=== PATIENT | male | born 1955 | race Caucasian/White ===

== ENCOUNTER → 2017-04-10 11:31 | Outpatient (CLI) | payer OTHER ==
[2016-08-02 09:47] VITALS: BMI 27.6
[~2017-04-10 11:31] MED LIST: COUMADIN2 MG PO; COUMADIN4 MG PO; FLAGYL500 MG PO; K-DUR20 MEQ PO; LEVAQUIN500 MG PO; LEVOTHYROXINE175 MCG PO; LIPITOR20 MG PO; LOPID600 MG PO; PACERONE200 MG PO; TENORMIN25 MG PO
[2017-04-10 12:07] LABS: INR 2.13 (0.85-1.17); PROTIME 23.9 SECONDS (11.6-15.0)
== END | disposition home or self-care (01) ==
LOC: D.LAB 10:15
PROVIDERS: Family Medicine
DX: I35.8 Other nonrheumatic aortic valve disorders (principal)

== ENCOUNTER 2019-06-05 10:12 | Emergency (ER) | payer MEDICARE, BC ==
[~2019-06-05] VITALS: Ht 180.3 cm; Wt 90.9 kg
[2019-06-05 10:14] VITALS: Ht 180.3 cm; Wt 90.9 kg
[2019-06-05] MEDS ORDERED: TRICOR145 MG PO (10:16)
[2019-06-05 10:40] LABS: BASOPHILS 0.3 % (0-2); EOSINOPHILS 4.5 % (0-7); HEMATOCRIT 44.5 % (42.0-54.0); HEMOGLOBIN 15.7 g/dL (13.5-17.5); IMMATURE GRANULOCYTES 0.4 % (0-5); LYMPHOCYTES 30.1 % (15-50); MCH 30.1 pg (26.0-34.0); MCHC 35.3 g/dL (31.0-37.0); MCV 85.4 fL (80.0-100.0); MEAN PLATELET VOLUME 10.3 fL (7.4-10.4); MONOCYTES 10.8 % (2-11); NEUTROPHILS 53.9 % (40-80); RBC 5.21 10x6/uL (4.20-6.10); RDW 14.5 % (11.5-14.5)
[2019-06-05 10:42] LABS: PLATELET COUNT 253 10x3/uL (130-400)
[2019-06-05 11:41] LABS: ALBUMIN 3.7 g/dL (3.4-5.0); BILIRUBIN - TOTAL 0.59 mg/dL (0.2-1.3); CALCIUM 9.1 mg/dL (8.5-10.1); CARBON DIOXIDE 26.9 mmol/L (21.0-32.0); CREATININE - SERUM 1.5 mg/dL (0.6-1.3); POTASSIUM - SERUM 3.9 mmol/L (3.5-5.1); PROTEIN - SERUM 7.2 g/dL (6.4-8.2)
[2019-06-05] MEDS ORDERED: MECLIZINE HCL12.5 MG PO (14:17)
[2019-06-05] MEDS ORDERED: AUGMENTIN 875-11 TAB PO (14:17)
[2019-06-05 15:23] VITALS: BP 129/72
== END 2019-06-05 15:07 | disposition home or self-care (01) ==
LOC: D.ER 10:12
PROVIDERS: Family Medicine
DX: J32.9 Chronic sinusitis, unspecified (principal); R42 Dizziness and giddiness; I10 Essential (primary) hypertension

== ENCOUNTER 2019-11-14 13:34 | Emergency (ER) | payer MEDICARE, BC ==
[~2019-11-14] VITALS: Ht 180.3 cm; Wt 89.4 kg
[~2019-11-14 13:34] MED LIST changes: +AUGMENTIN 875-11 TAB PO; +MECLIZINE HCL12.5 MG PO; +TRICOR145 MG PO
[2019-11-14 13:51] VITALS: Ht 180.3 cm; Wt 89.4 kg
[2019-11-14 14:39] LABS: BASOPHILS 0 % (0-2); EOSINOPHILS 0 % (0-7); HEMATOCRIT 45.5 % (42.0-54.0); HEMOGLOBIN 15.5 g/dL (13.5-17.5); IMMATURE GRANULOCYTES 0.3 % (0-5); LYMPHOCYTES 2.6 % (15-50); MCHC 34.1 g/dL (31.0-37.0); MEAN PLATELET VOLUME 9.2 fL (7.4-10.4); MONOCYTES 2.4 % (2-11); NEUTROPHILS 94.7 % (40-80); PLATELET COUNT 277 10x3/uL (130-400); RBC 5.17 10x6/uL (4.20-6.10); RDW 15.1 % (11.5-14.5); WBC 17.8 10x3/uL (4.8-10.8)
[2019-11-14 14:57] LABS: CALC OSMOLALITY 289 mosm/kg (275-300); CALCIUM 9.6 mg/dL (8.5-10.1); CARBON DIOXIDE 23.2 mmol/L (21.0-32.0); CHLORIDE - SERUM 106 mmol/L (98-107); CREATININE - SERUM 1.3 mg/dL (0.6-1.3); GLUCOSE 149 mg/dL (74-106); POTASSIUM - SERUM 3.7 mmol/L (3.5-5.1); SODIUM 141 mmol/L (136-145); UREA NITROGEN 29 mg/dL (7-18); eGFR NON AFRICAN AMERICAN 59 mL/min (90-120)
[2019-11-14 15:09] LABS: ALBUMIN 3.8 g/dL (3.4-5.0); ALKALINE PHOSPHATASE 54 U/L (46-116); ALT (SGPT) 100 U/L (10-68); AMYLASE - SERUM 50 U/L (25-115); BILIRUBIN - TOTAL 1.76 mg/dL (0.2-1.3); LIPASE 115 U/L (73-393); PROTEIN - SERUM 7.3 g/dL (6.4-8.2); TROPONIN-I < 0.017 ng/mL (0.000-0.060)
[2019-11-14 19:20] VITALS: BP 106/63
== END 2019-11-14 19:22 | disposition other institution (70) ==
LOC: D.ER 13:34
PROVIDERS: Family Medicine
DX: K80.50 Calculus of bile duct without cholangitis or cholecystitis without obstruction (principal); E03.9 Hypothyroidism, unspecified; I10 Essential (primary) hypertension